=== PATIENT | female | born 1945 | race Caucasian/White ===

== ENCOUNTER 2017-11-18 15:27 | Emergency (ER) | payer OTHER ==
[~2017-11-18] VITALS: Ht 157.5 cm; Wt 131.5 kg
[2017-11-18] MEDS ORDERED: OXYBUTYNIN 5 MG5 M2 PO (16:55)
[2017-11-18] MEDS ORDERED: LOSARTAN-HCTZ1 EACH PO (16:55)
[2017-11-18] MEDS ORDERED: LEVOXYL137 MCG PO (16:56)
[2017-11-18] MEDS ORDERED: SIMVASTATIN40 MG PO (16:56)
[2017-11-18] MEDS ORDERED: WELLBUTRIN SR100 MG PO (16:57)
[2017-11-18] MEDS ORDERED: ELIQUIS5 MG PO (16:57)
[2017-11-18] MEDS ORDERED: CARTIA XT120 M1 PO (16:57)
[2017-11-18 18:13] VITALS: BP 142/88
== END 2017-11-18 18:14 | disposition home or self-care (01) ==
LOC: ER 15:27
DX: M17.12 Unilateral primary osteoarthritis, left knee (principal); S86.812A Strain of other muscle(s) and tendon(s) at lower leg level, left leg, initial encounter; Z87.891 Personal history of nicotine dependence; Z88.5 Allergy status to narcotic agent; X58.XXXA Exposure to other specified factors, initial encounter; Y93.89 Activity, other specified; Y92.89 Other specified places as the place of occurrence of the external cause; Y99.8 Other external cause status